=== PATIENT | female | born 2000 | race Caucasian/White ===

== ENCOUNTER 2019-11-16 20:06 | Emergency (ER) | payer SELFPAY ==
--- NOTE | 2019-11-16 20:32 | ERPHSYRPT ---
- History of Present Illness Time Seen by Provider: 11/16/19 20:30 Source: patient Exam Limitations: no limitations Patient Subjective Stated Complaint: pt to ER with complaints of possible miscarriage. pt state she had negative tests and states she passed a clot thinking it might have been a miscarriage. Triage Nursing Assessment: pt to ER with complaints of possible miscarriage. pt had negative preg tests but thinks she might have had a miscarriage. Physician History: pt to ER with complaints of possible miscarriage. pt state she had negative tests and states she passed a clot thinking it might have been a miscarriage. denies any abdominal pain, nausea, vomiting Timing/Duration: today Activites at Onset: none Sexual intercourse history: single partner Modifying Factors: Improves With: nothing Associated Symptoms: denies symptoms Allergies/Adverse Reactions: Penicillins Allergy (Verified 11/16/19 20:23) Hx Tetanus, Diphtheria Vaccination/Date Given: Yes Hx Influenza Vaccination/Date Given: No Hx Pneumococcal Vaccination/Date Given: No - Review of Systems Constitutional: No Fever, No Chills Eyes: No Symptoms Ears, Nose, & Throat: No Symptoms Respiratory: No Cough, No Dyspnea Cardiac: No Chest Pain, No Edema, No Syncope Abdominal/Gastrointestinal: No Abdominal Pain, No Nausea, No Vomiting, No Diarrhea Genitourinary Symptoms: Vaginal Bleeding, No Dysuria Musculoskeletal: No Back Pain, No Neck Pain Skin: No Rash Neurological: No Dizziness, No Focal Weakness, No Sensory Changes Psychological: No Symptoms Endocrine: No Symptoms All Other Systems: Reviewed and Negative - Past Medical History Pertinent Past Medical History: No Neurological History: No Pertinent History ENT History: No Pertinent History Cardiac History: No Pertinent History Respiratory History: No Pertinent History Endocrine Medical History: No Pertinent History Musculoskeletal History: No Pertinent History GI Medical History: No Pertinent History History: No Pertinent History Psycho-Social History: No Pertinent History Female Reproductive Disorders: No Pertinent History - Past Surgical History Past Surgical History: Yes Neuro Surgical History: No Pertinent History Cardiac: No Pertinent History Respiratory: No Pertinent History Gastrointestinal: Appendectomy Genitourinary: No Pertinent History Musculoskeletal: No Pertinent History Female Surgical History: Section - Social History Smoking Status: Current every day smoker Exposure to second hand smoke: Yes Drug Use: none Patient Lives Alone: No - Female History Hx Last Menstrual Period: 10/11/2019 Hx Now: No - Nursing Vital Signs Nursing Vital Signs: Initial Vital Signs Temperature 98.2 F 11/16/19 20:16 Pulse Rate 120 H 11/16/19 20:16 Respiratory Rate 16 11/16/19 20:16 Blood Pressure 147/93 11/16/19 20:16 O2 Sat by Pulse Oximetry 98 11/16/19 20:16 Pain Scale Pain Intensity 4 - Physical Exam General Appearance: no apparent distress, alert Eye Exam: PERRL/EOMI, eyes nml inspection Ears, Nose, Throat Exam: normal ENT inspection, TMs normal, pharynx normal, moist mucous membranes Neck Exam: normal inspection, non-tender, supple, full range of motion Respiratory Exam: normal breath sounds, lungs clear, No respiratory distress Cardiovascular Exam: regular rate/rhythm, normal heart sounds, normal peripheral pulses Gastrointestinal/Abdomen Exam: soft, No tenderness, No mass Back Exam: normal inspection, normal range of motion, No CVA tenderness, No vertebral tenderness Extremity Exam: normal inspection, normal range of motion, pelvis stable Neurologic Exam: alert, oriented x 3, cooperative, 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, normal mood/affect, sensation nml, No motor deficits Skin Exam: normal color, warm, dry Lymphatic Exam: No adenopathy SpO2: 98 - Course Nursing assessment & vital signs reviewed: Yes Ordered Tests: Active Orders 24 hr Category Date Time Status HCG,QUALITATIVE URINE Stat Lab 11/16/19 20:24 Completed UA W/RFX UR CULTURE Stat Lab 11/16/19 20:24 Results Lab/Rad Data: Laboratory Results 11/16/19 11/16/19 Range/Units 20:24 20:24 Urine Color YELLOW (YELLOW) Urine Appearance CLEAR (CLEAR) Urine pH 5.0 (5-6) Ur Specific [place] 1.010 (1.005-1.025) Urine Protein NEGATIVE (Negative) Urine Ketones NEGATIVE (NEGATIVE) Urine Blood 250 (0-5) Adonis/ul Urine Nitrite NEGATIVE (NEGATIVE) Urine Bilirubin NEGATIVE (NEGATIVE) Urine Urobilinogen NORMAL (0-1) mg/dL Ur Leukocyte Esterase NEGATIVE (NEGATIVE) Urine WBC (Auto) Pending Urine RBC (Auto) Pending U Epithel Cells (Auto) Pending Urine Bacteria (Auto) Pending Urine Culture Reflexed Pending Urine Glucose NEGATIVE (NEGATIVE) mg/dL Urine HCG, Qual NEGATIVE (Negative) - Departure Departure Disposition: Home Clinical Impression: Complete miscarriage Condition: Stable Critical Care Time: No Referrals: GENET ZAMORA [Primary Care Provider] - Instructions: Dealing With Miscarriage, Miscarriage (DC) Additional Instructions: CHAIM LOW was seen on 11/16/19 n the Emergency Room. At that time you were treated for an emergent condition, during your visit Laboratory, Radiology and/or other procedures may have been ordered. It is very important that you follow-up with your Primary Care Physician GENET ZAMORA within the next 24- 48 hours to review your Emergency Room visit and the final results of testing that was ordered. Some test results such as Urine Cultures, Blood Cultures, and other cultures if ordered will not be finalized for 24-48 hours. If you do not have a Primary Care Provider please call the medical records department at [phone] to obtain a copy of your results or you may sign into our patient portal to obtain these results by visiting us @ [email or web address] and completing the following steps: 1. Click on the Patient Portal link 2. Click the Patient Self Enrollment Link to complete the enrollment form and entering your 3. Once the enrollment form is completed you will receive an email with a temporary ID and password at the email address you provided. 4. Next choose a user name and password. Your user name must be at least 4 characters long and your password must be at least 4 characters long. 5. Choose a security question from the list and provide your answer to the question. If you already have signed into the Health Portal you may access your Health Care Information 05/06 by the following steps: 1. Login to our website @ [email or web address] 2. Enter your original user name and password. FAQS The [facility] Portal is an online tool that contains your Lab Results, Radiology Reports, Visit History, Discharge Instructions and Health Summary Lab and Radiology Results will not be available for 72 hours on the portal. The Portal is a secure site, passwords are encryted and URLs are re-written so they cannot be copied and pasted. You and authorized family members are the only ones who can access your Portal. Also there is a timeout feature that protects your information if you leave the Portal page open. If you have technical difficulty please use the Contact Us link on the page this will allow you to submit any questions you have regarding the Portal or you may contact the Medical Record Department at [phone].
[2019-11-16 21:30] LABS: Appearance CLEAR (CLEAR); Bilirubin NEGATIVE (NEGATIVE); Blood 250 Ery/ul (0-5); Glucose NEGATIVE (NEGATIVE); Ketones NEGATIVE (NEGATIVE); Leukocyte Esterase NEGATIVE (NEGATIVE); Nitrite NEGATIVE (NEGATIVE); Protein,Urine Dip NEGATIVE (Negative); Urobilinogen NORMAL mg/dL (0-1)
[2019-11-16 21:34] LABS: Bacteria NONE SEEN /HPF (NEGATIVE); Epithelial Cells RARE /HPF (FEW); Mucus SLIGHT /HPF (NEGATIVE); RBC NONE SEEN /HPF (0-2); WBC NONE SEEN /HPF (0-5)
[2019-11-16 21:45] VITALS: BP 132/85; PULSE 108; O2SAT 99
== END 2019-11-16 21:45 | disposition home or self-care (01) ==
LOC: ED 20:06
DX: O03.9 Complete or unspecified spontaneous abortion without complication (principal)
CPT/HCPCS: 81001; 84703; 99283

== ENCOUNTER 2020-06-08 18:51 | Emergency (ER) | payer MEDICAID ==
--- NOTE | 2020-06-08 19:03 | ERPHSYRPT ---
- History of Present Illness Time Seen by Provider: 06/08/20 18:59 Source: patient, family Exam Limitations: no limitations Physician History: This is a 19-year-old white female who by ultrasound dates is 6 weeks and 6 days . Today, the patient felt some crampy abdominal pain then passed a large amount of blood and tissue. Patient had a miscarried spontaneously in December of this year. Patient's primary care physician is Dr. Petersen. The ultrasound on 06/04/2020 stated that there is a single live intrauterine fetus that is 6 weeks and 2 days. Patient has no chest pain. She denies shortness of breath. She has had no nausea vomiting or diarrhea. Timing/Duration: today Quality: cramping, sharpness Onset Location: suprapubic (Left side) Pain Radiation: none Severity of Pain-Max: moderate Severity of Pain-Current: moderate Prior abdominal problems: none Modifying Factors: Improves With: nothing Associated Symptoms: abdominal pain, vaginal discharge (Bloody and tissue) Allergies/Adverse Reactions: Penicillins Allergy (Verified 11/16/19 20:23) Home Medications: [place]-3 Fatty Acids/Fish Oil [Fish Oil 1,000 mg Capsule] 1 each PO DAILY 06/08/20 [History] Vits W-Ca,Fe,FA(<1Mg) [] 1 each PO DAILY 06/08/20 [History] Hx Tetanus, Diphtheria Vaccination/Date Given: Yes Hx Influenza Vaccination/Date Given: No Hx Pneumococcal Vaccination/Date Given: No Travel Risk - International Travel Have you traveled outside of the country in past 3 weeks: No - Coronavirus Screening Are you exhibiting any of the following symptoms?: No Close contact with a COVID-19 positive Pt in past 14-21 Days: No - Review of Systems Constitutional: No Symptoms Eyes: No Symptoms Ears, Nose, & Throat: No Symptoms Respiratory: No Symptoms Cardiac: No Symptoms Abdominal/Gastrointestinal: Abdominal Pain Genitourinary Symptoms: No Symptoms Musculoskeletal: No Symptoms Skin: No Symptoms Neurological: No Symptoms Psychological: No Symptoms Endocrine: No Symptoms Hematologic/Lymphatic: No Symptoms Immunological/Allergic: No Symptoms All Other Systems: Reviewed and Negative - Past Medical History Pertinent Past Medical History: No Neurological History: No Pertinent History ENT History: No Pertinent History Cardiac History: No Pertinent History Respiratory History: No Pertinent History Endocrine Medical History: No Pertinent History Musculoskeletal History: No Pertinent History GI Medical History: No Pertinent History History: No Pertinent History Psycho-Social History: No Pertinent History Female Reproductive Disorders: No Pertinent History Other Medical History: pt states she was diagnosed with scoliosis after . states she had seizures as a child- states no medications and no seizures for many years - Past Surgical History Past Surgical History: Yes Neuro Surgical History: No Pertinent History Cardiac: No Pertinent History Respiratory: No Pertinent History Gastrointestinal: Appendectomy Genitourinary: No Pertinent History Musculoskeletal: No Pertinent History Female Surgical History: Section - Social History Smoking Status: Current every day smoker How long have you smoked: recent Exposure to second hand smoke: Yes Drug Use: none Patient Lives Alone: No - Nursing Vital Signs Nursing Vital Signs: Initial Vital Signs Temperature 99.3 F 06/08/20 18:52 Pulse Rate 95 H 06/08/20 18:52 Respiratory Rate 18 06/08/20 18:52 Blood Pressure 136/77 06/08/20 18:52 O2 Sat by Pulse Oximetry 98 06/08/20 18:52 Pain Scale Pain Intensity 10 - Physical Exam General Appearance: mild distress, alert, anxiety Eye Exam: PERRL/EOMI, eyes nml inspection Ears, Nose, Throat Exam: normal ENT inspection, moist mucous membranes Neck Exam: normal inspection, non-tender, supple, full range of motion Respiratory Exam: normal breath sounds, lungs clear, airway intact, No chest tenderness, No respiratory distress Cardiovascular Exam: regular rate/rhythm, normal heart sounds, normal peripheral pulses Gastrointestinal/Abdomen Exam: soft, normal bowel sounds, tenderness (Left suprapubic region), No guarding, No rebound Pelvic Exam: not done Rectal Exam: not done Back Exam: normal inspection, normal range of motion, No CVA tenderness, No vertebral tenderness Extremity Exam: normal inspection, normal range of motion, pelvis stable Neurologic Exam: alert, oriented x 3, cooperative, clothing patternmaker II-XII nml as tested, normal mood/affect, nml cerebellar function, nml station & gait, sensation nml Skin Exam: normal color, warm, dry Lymphatic Exam: No adenopathy O2 Delivery: Room Air - Course Nursing assessment & vital signs reviewed: Yes Ordered Tests: Active Orders 24 hr Category Date Time Status IV Insertion STAT Care 06/08/20 19:06 Active CBC W DIFF Stat Lab 06/08/20 19:35 Completed CMP Stat Lab 07/27/20 19:35 Completed HCG, Quantitative (Inhouse) Stat Lab 06/08/20 19:35 Completed Manual Differential NC Stat Lab 06/08/20 19:35 Completed UA W/RFX UR CULTURE Stat Lab 06/08/20 19:45 Completed Medication Summary Discontinued Medications Generic Name Dose Route Start Last Admin Trade Name Ashley PRN Reason Stop Dose Admin Sodium Chloride 1,000 mls @ 999 mls/hr 06/08/20 19:06 06/08/20 19:30 Sodium Chloride 0.9% 1000 Ml IV 06/08/20 20:06 999 mls/hr .Q1H1M STA Administration Sodium Chloride Confirm 06/08/20 19:28 Sodium Chloride 0.9% 1000 Ml Administered 06/08/20 19:29 Dose 1,000 mls @ ud .ROUTE .[facility] Lab/Rad Data: Laboratory Result Diagrams 06/08/20 19:35 06/08/20 19:35 Laboratory Results 06/08/20 06/08/20 06/08/20 Range/Units 19:45 19:35 19:35 WBC 8.2 (4.0-10.5) K/mm3 RBC 3.35 L (4.1-5.4) M/mm3 Hgb 10.2 L (12.0-16.0) gm/dl Hct 31.7 L (35-47) % MCV 94.6 (78-100) fl MCH 30.4 (26-32) pg MCHC 32.2 (32-36) g/dl RDW 13.0 (11.5-14.0) % Plt Count 215 (150-450) K/mm3 MPV 11.0 (7.5-11.0) fl Segmented Neutrophils 73 H (36.0-66.0) % Lymphocytes (Manual) 26 (24-44) % Monocytes (Manual) 1 (0.0-12.0) % Platelet Estimate NORMAL (NORMAL) RBC Morphology NORMAL Sodium 137 (137-145) mmol/L Potassium 4.0 (3.5-5.1) mmol/L Chloride 106 (98-107) mmol/L Carbon Dioxide 24 (22-30) mmol/L Anion Gap 12.2 (5-15) MEQ/L BUN 12 (7-17) mg/dL Creatinine 0.65 (0.52-1.04) mg/dL Estimated GFR > 60.0 ML/MIN Glucose 111 H (74-106) mg/dL Calcium 9.1 (8.4-10.2) mg/dL Total Bilirubin 0.30 (0.2-1.3) mg/dL AST 17 (14-36) U/L ALT 12 (0-35) U/L Alkaline Phosphatase 80 (38-126) U/L Serum Total Protein 7.2 (6.3-8.2) g/dL Albumin 4.0 (3.5-5.0) g/dL Beta HCG, Quant 22723 mIU/ml Urine Color YELLOW (YELLOW) Urine Appearance CLEAR (CLEAR) Urine pH 6.0 (5-6) Ur Specific [place] 1.023 (1.005-1.025) Urine Protein NEGATIVE (Negative) Urine Ketones NEGATIVE (NEGATIVE) Urine Blood SMALL (0-5) Adoins/ul Urine Nitrite NEGATIVE (NEGATIVE) Urine Bilirubin NEGATIVE (NEGATIVE) Urine Urobilinogen NEGATIVE (0-1) mg/dL Ur Leukocyte Esterase NEGATIVE (NEGATIVE) Urine WBC (Auto) NONE (0-5) /HPF Urine RBC (Auto) 0-2 (0-2) /HPF U Epithel Cells (Auto) RARE (FEW) /HPF Urine Bacteria (Auto) NONE SEEN (NEGATIVE) /HPF Urine Mucus (Auto) SLIGHT (NEGATIVE) /HPF Urine Culture Reflexed NO (NO) Urine Glucose NEGATIVE (NEGATIVE) mg/dL - Progress Progress: re-examined, unchanged Air Movement: good Blood Culture(s) Obtained: No Antibiotics given: No Counseled pt/family regarding: lab results, diagnosis, need for follow-up - Departure Departure Disposition: Home Clinical Impression: Vaginal bleeding in patient at less than 20 weeks gestation Condition: Stable Critical Care Time: No Referrals: KATIUSKA PETERSEN MD [Primary Care Provider] - Additional Instructions: Drink plenty of fluids. bedrest. Call Dr. Petersen's office tomorrow to make a follow-up appointment. Return to the radiology department tomorrow for a repeat ultrasound.
[2020-06-08] MEDS ORDERED: Sodium Chloride 0.9% 1000 ML 1,000 ML IV STA (19:06)
[2020-06-08] MEDS ORDERED: Sodium Chloride 0.9% 1000 ML 1,000 ML ONE (19:28)
[2020-06-08 19:35] LABS: Hematocrit 31.7 % (35-47); Hemoglobin 10.2 gm/dl (12.0-16.0); Mean Cell Volume 94.6 fl (78-100); Mean Corpuscular Hemoglobin 30.4 pg (26-32); Mean Corpuscular Hgb Concent. 32.2 g/dl (32-36); Platelet Count 215 K/mm3 (150-450); Red Blood Count 3.35 M/mm3 (4.1-5.4); White Blood Count 8.2 K/mm3 (4.0-10.5)
[2020-06-08 19:56] LABS: ALKALINE PHOSPHATASE 80 U/L (38-126); ANION GAP 12.2 MEQ/L (5-15); BLOOD UREA NITROGEN 12 mg/dL (7-17); CHLORIDE 106 mmol/L (98-107); Calcium 9.1 mg/dL (8.4-10.2); Carbon Dioxide 24 mmol/L (22-30); Creatinine 1 0.65 mg/dL (0.52-1.04); Glucose 111 mg/dL (74-106); SGOT/AST 17 U/L (14-36); SGPT/ALT 12 U/L (0-35); SODIUM 137 mmol/L (137-145); Total Protein 7.2 g/dL (6.3-8.2)
[2020-06-08 20:00] LABS: Appearance CLEAR (CLEAR); Bacteria NONE SEEN /HPF (NEGATIVE); Bilirubin NEGATIVE (NEGATIVE); Blood SMALL Ery/ul (0-5); Epithelial Cells RARE /HPF (FEW); Glucose NEGATIVE (NEGATIVE); Ketones NEGATIVE (NEGATIVE); Leukocyte Esterase NEGATIVE (NEGATIVE); Mucus SLIGHT /HPF (NEGATIVE); Nitrite NEGATIVE (NEGATIVE); Protein,Urine Dip NEGATIVE (Negative); RBC 0-2 /HPF (0-2); Specific Gravity 1.023 (1.005-1.025); Urobilinogen NEGATIVE mg/dL (0-1)
[2020-06-08 20:09] LABS: Lymphocytes 26 % (24-44); Monocyte 1 % (0.0-12.0); Neutrophils 73 % (36.0-66.0); Total Cells Counted 100
[2020-06-08 20:11] LABS: Platelet Estimate NORMAL (NORMAL)
[2020-06-08 20:21] LABS: HCG, Quantitative (Inhouse) 20087 mIU/ml
[2020-06-08 20:40] VITALS: BP 119/64; PULSE 75; O2SAT 100
== END 2020-06-08 20:45 | disposition home or self-care (01) ==
LOC: ED 18:51
DX: O20.9 Hemorrhage in early pregnancy, unspecified (principal); Z3A.20 20 weeks gestation of pregnancy
CPT/HCPCS: 36000; 36415; 80053; 81001; 84702; 85025; 96360; 99284

== ENCOUNTER 2020-06-10 00:48 | Emergency (ER) | payer MEDICAID ==
[2020-06-10] MEDS ORDERED: Sodium Chloride 0.9% 1000 ML 1,000 ML IV STA (01:08)
[2020-06-10] MEDS ORDERED: MORPHINE SULFATE 2 MG INJ IV ONE (01:08)
[2020-06-10] MEDS ORDERED: Sodium Chloride 0.9% 1000 ML 1,000 ML ONE (01:23)
[2020-06-10] MEDS ORDERED: MORPHINE SULFATE 2 MG INJ ONE (01:23)
--- NOTE | 2020-06-10 01:27 | ERPHSYRPT ---
- History of Present Illness Time Seen by Provider: 06/10/20 01:00 Source: return to vendor Exam Limitations: no limitations Patient Subjective Stated Complaint: pt states that she started bleeding on 06/08/20, pt states that she is 6 wks , pt states that she had ultras ound 06/09/20, pt states that ultrasounds shown 2 possible babies, pt states that one of the babies was weaker, pt states that her bleeding increased this afternoon when she was getting ready for bath, pt states that "2 things came out at 2 different times", pt states that she had a miscarriage in December Triage Nursing Assessment: pt ambulated into the er, pt is axo x3, c/o miscarriage, pt states she has heavy vaginal bleeding, abd is soft, active bowel sounds in all quads, tenderness to abd, pt c/o cramping pain, states 10/10 pain to abd, vitals wnl Physician History: Patient is a 19-year-old female presents to our ED with concerns of miscarriage. Patient complains of vaginal bleeding that started on June 08, 2 days ago. Patient states she is currently 6 weeks . Patient was in our ED 2 days ago for the same. Patient had an ultrasound done yesterday morning and revealed a single viable IUP. There is a tiny subchorionic hemorrhage at that time as well. Patient currently complains of severe cramping sensation and bleeding that started this afternoon. Patient states she passed to large soft tissue from her vagina. Patient concerned that this may be a miscarriage. No associated trauma. No fevers. No nausea or vomiting. No diarrhea. Patient states symptoms are moderate to severe in intensity. She voices no other complaints at this time. Timing/Duration: day(s) Severity: severe Modifying Factors: Improves With: nothing Associated Symptoms: No nausea, No vomiting, No abdominal pain, No rash, No syncope (Painful pelvic cramps.), No seizure Allergies/Adverse Reactions: Penicillins Allergy (Verified 06/10/20 00:55) Home Medications: [place]-3 Fatty Acids/Fish Oil [Fish Oil 1,000 mg Capsule] 1 each PO DAILY 06/08/20 [History] Vits W-Ca,Fe,FA(<1Mg) [] 1 each PO DAILY 06/08/20 [History] Hx Tetanus, Diphtheria Vaccination/Date Given: Yes Hx Influenza Vaccination/Date Given: No Hx Pneumococcal Vaccination/Date Given: No Travel Risk - International Travel Have you traveled outside of the country in past 3 weeks: No - Coronavirus Screening Are you exhibiting any of the following symptoms?: No Close contact with a COVID-19 positive Pt in past 14-21 Days: No - Review of Systems Constitutional: No Symptoms, No Fever, No Chills Eyes: No Symptoms Ears, Nose, & Throat: No Symptoms Respiratory: No Symptoms, No Cough, No Dyspnea Cardiac: No Symptoms, No Chest Pain, No Edema, No Syncope Abdominal/Gastrointestinal: No Symptoms, No Abdominal Pain, No Nausea, No Vo miting, No Diarrhea Genitourinary Symptoms: No Symptoms, No Dysuria Musculoskeletal: No Symptoms, No Back Pain, No Neck Pain Skin: No Symptoms, No Rash Neurological: No Symptoms, No Dizziness, No Focal Weakness, No Sensory Changes Psychological: No Symptoms Endocrine: No Symptoms Hematologic/Lymphatic: No Symptoms Immunological/Allergic: No Symptoms All Other Systems: Reviewed and Negative - Past Medical History Pertinent Past Medical History: No Neurological History: No Pertinent History ENT History: No Pertinent History Cardiac History: No Pertinent History Respiratory History: No Pertinent History Endocrine Medical History: No Pertinent History Musculoskeletal History: No Pertinent History GI Medical History: No Pertinent History History: No Pertinent History Psycho-Social History: No Pertinent History Female Reproductive Disorders: No Pertinent History Other Medical History: pt states she was diagnosed with scoliosis after . states she had seizures as a child- states no medications and no seizures for many years - Past Surgical History Past Surgical History: Yes Neuro Surgical History: No Pertinent History Cardiac: No Pertinent History Respiratory: No Pertinent History Gastrointestinal: Appendectomy Genitourinary: No Pertinent History Musculoskeletal: No Pertinent History Female Surgical History: Section - Social History Smoking Status: Former smoker How long have you smoked: recent Exposure to second hand smoke: Yes Drug Use: none Patient Lives Alone: No - Female History Hx Now: Yes (6 wks) - Nursing Vital Signs Nursing Vital Signs: Initial Vital Signs Temperature 99.1 F 06/10/20 00:56 Pulse Rate 89 06/10/20 00:56 Blood Pressure 135/77 06/10/20 00:56 O2 Sat by Pulse Oximetry 98 06/10/20 00:56 Pain Scale Pain Intensity 6 - Physical Exam General Appearance: no apparent distress, alert Eye Exam: PERRL/EOMI, eyes nml inspection Ears, Nose, Throat Exam: normal ENT inspection, TMs normal, pharynx normal, moist mucous membranes Neck Exam: normal inspection, non-tender, supple, full range of motion Respiratory Exam: normal breath sounds, lungs clear, No respiratory distress Cardiovascular Exam: regular rate/rhythm, normal heart sounds, normal peripheral pulses Gastrointestinal/Abdomen Exam: soft, normal bowel sounds, No tenderness, No mass Pelvic Exam: vaginal bleeding, other (No active vaginal bleeding. Cervical loss appears closed. No adnexal tenderness. No CMT.), No adnexal tenderness, No adnexal mass, No mass, No cervical motion tenderness, No uterine tenderness, No vaginal discharge Rectal Exam: deferred Back Exam: normal inspection, normal range of motion, No CVA tenderness, No vertebral tenderness Extremity Exam: normal inspection, normal range of motion, pelvis stable Neurologic Exam: alert, oriented x 3, cooperative, normal mood/affect, nml cerebellar function, nml station & gait, sensation nml, No motor deficits Skin Exam: normal color, warm, dry, No rash Lymphatic Exam: No adenopathy SpO2 Interpretation: normal SpO2: 98 O2 Delivery: Room Air - Course Nursing assessment & vital signs reviewed: Yes Ordered Tests: Active Orders 24 hr Category Date Time Status IV Insertion STAT Care 06/10/20 01:08 Active CBC W DIFF Stat Lab 06/10/20 01:25 Completed CMP Stat Lab 06/10/20 01:25 Completed HCG, Quantitative (Inhouse) Stat Lab 06/10/20 01:25 Completed Manual Differential NC Stat Lab 06/10/20 01:25 Completed Wet Prep Stat Lab 06/10/20 Uncollected Medication Summary Discontinued Medications Generic Name Dose Route Start Last Admin Trade Name Freq PRN Reason Stop Dose Admin Sodium Chloride 1,000 mls @ 999 mls/hr 06/10/20 01:08 06/10/20 01:25 Sodium Chloride 0.9% 1000 Ml IV 06/10/20 02:08 999 mls/hr .Q1H1M STA Administration Sodium Chloride Confirm 06/10/20 01:23 Sodium Chloride 0.9% 1000 Ml Administered 06/10/20 01:24 Dose 1,000 mls @ ud .ROUTE .STK-MED ONE Morphine Sulfate 2 mg 06/10/20 01:08 06/10/20 01:25 Morphine Sulfate 2 Mg Inj IV 06/10/20 01:09 2 mg STAT ONE Administration Morphine Sulfate Confirm 06/10/20 01:23 Morphine Sulfate 2 Mg Inj Administered 06/10/20 01:24 Dose 2 mg .ROUTE .STK-MED ONE Lab/Rad Data: Laboratory Result Diagrams 06/10/20 01:25 06/10/20 01:25 Laboratory Results 06/10/20 06/10/20 06/10/20 Range/Units 01:25 01:25 01:25 WBC 9.9 (4.0-10.5) K/mm3 RBC 3.21 L (4.1-5.4) M/mm3 Hgb 9.7 L (12.0-16.0) gm/dl Hct 30.1 L (35-47) % MCV 93.8 (78-100) fl MCH 30.2 (26-32) pg MCHC 32.2 (32-36) g/dl RDW 13.2 (11.5-14.0) % Plt Count 205 (150-450) K/mm3 MPV 10.7 (7.5-11.0) fl Segmented Neutrophils 70 H (36.0-66.0) % Lymphocytes (Manual) 22 L (24-44) % Monocytes (Manual) 7 (0.0-12.0) % Eosinophils (Manual) 1 (0.00-3.0) % Hypochromia 1+ Platelet Estimate NORMAL (NORMAL) RBC Morphology ABNORMAL Sodium 136 L (137-145) mmol/L Potassium 3.7 (3.5-5.1) mmol/L Chloride 105 (98-107) mmol/L Carbon Dioxide 22 (22-30) mmol/L Anion Gap 13.7 (5-15) MEQ/L BUN 8 (7-17) mg/dL Creatinine 0.56 (0.52-1.04) mg/dL Estimated GFR > 60.0 ML/MIN Glucose 94 (74-106) mg/dL Calcium 9.3 (8.4-10.2) mg/dL Total Bilirubin 0.30 (0.2-1.3) mg/dL AST 18 (14-36) U/L ALT 12 (0-35) U/L Alkaline Phosphatase 89 (38-126) U/L Serum Total Protein 7.1 (6.3-8.2) g/dL Albumin 4.1 (3.5-5.0) g/dL Beta HCG, Quant 91970 mIU/ml - Progress Progress: improved Progress Note: 06/10/20 02:58 Patient presented to our ED with concerns with spontaneous AB. The tissue past appears to be remains. Beta hCG decreased from 20,000-17,000. Normocytic anemia observed on work-up. Pain improved. Cervical os appears closed on exam. Patient had GC chlamydia performed 1 week ago. That test was negative. Wet mount was performed today. Results are negative. Repeat OB ultrasound was ordered to be performed as an outpatient and results to be sent to Dr. Petersen. Plan of care discussed with patient. She agrees and understands with plan of care. Rh+. No indication for RhoGam at this time. 06/10/20 03:[address] Danielle who advised sending the past tissue to pathology for analysis of products of conception. 06/10/20 03:19 Counseled pt/family regarding: lab results, diagnosis, need for follow-up - Departure Departure Disposition: Home Clinical Impression: Spontaneous , Complete Condition: Stable Critical Care Time: No Referrals: KATIUSKA PETERSEN MD [Primary Care Provider] - Additional Instructions: Discharge/Care Plan CHAIM LOW was seen on 06/10/20 in the Emergency Room. The patient was counseled regarding Diagnosis,Lab results, Imaging studies, need for follow up and when to return to the Emergency Room. Prescriptions given: Discharge Note I have spoken with the patient and/or caregivers. I have explained the patient's condition, diagnosis and treatment plan based on the information available to me at this time. I have answered the patient's and/or caregiver's questions and addressed any concerns. The patient and/or caregivers have as good understanding of the patient's diagnosis, condition and treatment plan as can be expected at this point. The vital signs have been stable. The patient's condition is stable and appropriate for discharge from the emergency department. The patient will pursue further outpatient evaluation with the primary care physician or other designated or consulting physician as outlined in the discharge instructions. The patient and/or caregivers are agreeable to this plan of care and follow-up instructions have been explained in detail. The patient and/or caregivers have received these instruction. The patient/and or caregivers are aware that any significant change in condition or worsening of symptoms should prompt an immediate return to this or the closest emergency department or call 911.
[2020-06-10 01:28] LABS: Hematocrit 30.1 % (35-47); Hemoglobin 9.7 gm/dl (12.0-16.0); Mean Cell Volume 93.8 fl (78-100); Mean Corpuscular Hemoglobin 30.2 pg (26-32); Mean Corpuscular Hgb Concent. 32.2 g/dl (32-36); Mean Platelet Volume 10.7 fl (7.5-11.0); Platelet Count 205 K/mm3 (150-450); Red Blood Count 3.21 M/mm3 (4.1-5.4); Red Cell Distribution Width 13.2 % (11.5-14.0); White Blood Count 9.9 K/mm3 (4.0-10.5)
[2020-06-10 01:42] LABS: ALBUMIN 4.1 g/dL (3.5-5.0); ALKALINE PHOSPHATASE 89 U/L (38-126); ANION GAP 13.7 MEQ/L (5-15); BLOOD UREA NITROGEN 8 mg/dL (7-17); CHLORIDE 105 mmol/L (98-107); Calcium 9.3 mg/dL (8.4-10.2); Carbon Dioxide 22 mmol/L (22-30); Creatinine 1 0.56 mg/dL (0.52-1.04); Glucose 94 mg/dL (74-106); Potassium 3.7 mmol/L (3.5-5.1); SGOT/AST 18 U/L (14-36); SGPT/ALT 12 U/L (0-35); SODIUM 136 mmol/L (137-145); Total Protein 7.1 g/dL (6.3-8.2)
[2020-06-10 02:23] LABS: Eosinophil 1 % (0.00-3.0); Lymphocytes 22 % (24-44); Monocyte 7 % (0.0-12.0); Neutrophils 70 % (36.0-66.0); Platelet Estimate NORMAL (NORMAL); Total Cells Counted 100
[2020-06-10 02:24] LABS: Hypochromia 1+
[2020-06-10 03:46] VITALS: BP 118/72; PULSE 71; O2SAT 100
[2020-06-10 03:49] LABS: Bacteria Rare; Clue Cells None Seen; Red Blood Cells Moderate; Trichomonas None Seen; White Blood Cells Rare; Yeast None Seen
== END 2020-06-10 03:46 | disposition home or self-care (01) ==
LOC: ED 00:48
DX: O03.9 Complete or unspecified spontaneous abortion without complication (principal)
CPT/HCPCS: 36000; 36415; 76816; 80053; 84702; 85025; 87210; 96360; 96374; 99284; J2270